=== PATIENT | male | born 1945 | race Caucasian/White ===

== ENCOUNTER 2020-08-12 11:39 | Emergency (ER) | payer OTHER ==
[2020-08-12 13:54] LABS: BASOPHIL 0.3 % (0-2); HCT 44.6 % (42.0-52.0); HGB 14.6 g/dl (13.2-18.0); LYMPHOCYTE 17.2 % (15-48); MCH 30.3 pg (25.0-31.0); MCHC 32.7 g/dL (32.0-36.0); MCV 92.5 fL (78.0-100.0); MONOCYTE 8.2 % (0-12); MPV 11.3 fL (6.0-9.5); NEUTROPHIL 72.7 % (41-80); NRBC 0; PLT 174 K/uL (150-400); RBC 4.82 M/uL (4.70-6.00); RDW 12.5 % (11.5-14.0); WBC 6.9 K/uL (4.0-10.5)
[2020-08-12 14:31] LABS: ALBUMIN 3.6 g/dL (3.4-5.0); BILIRUBIN - TOTAL 0.3 mg/dL (0.2-1.0); BUN/CREAT RATIO (CALC) 25.5 RATIO; C-REACTIVE PROTEIN 3.8 mg/dL (<=0.90); CREATININE 0.98 mg/dL (0.67-1.17); POTASSIUM 4.6 mmol/L (3.5-5.1); TOTAL PROTEIN 7.6 g/dL (6.4-8.2)
[2020-08-12] MEDS ORDERED: TESSALON PERLE100 M1 PO (17:43)
[2020-08-12] MEDS ORDERED: VENTOLIN HFA18 GM INH (17:43)
== END 2020-08-12 18:50 | disposition home or self-care (01) ==
LOC: FER 11:39
PROVIDERS: Emergency Medicine
DX: U07.1 COVID-19 (principal); E11.9 Type 2 diabetes mellitus without complications; Z88.0 Allergy status to penicillin; Z88.1 Allergy status to other antibiotic agents
CPT/HCPCS: 36415; 36600; 71045; 80053; 82728; 82803; 84145; 85025; 86140; 93005; 94640; 94664; J7050; M0239